=== PATIENT | female | born 1960 | race Caucasian/White ===

== ENCOUNTER 2018-04-17 09:51 | Emergency (ER) | payer OTHER ==
[2018-04-17 10:01] VITALS: BP 148/95
--- NOTE | 2018-04-17 12:03 | ED ---
Psychiatric Complaint - HPI Summary HPI Summary: 57 yo white female with h/o bipolar DO dropped off by her neighbor stating she is psychiatrically "unstable". She is currently not suicidal or homicidal and neighbor voices concerns that her family and her neighbors are concerned about her condition. Her "psychologist" neighbor told the triage nurse that pt has stated some suicidal ideation and that she is unstable, needing to be evaluated. Currently pt is extremely neurotic about her condition, fixated on "loud" clicking of wall clock, certain body piercings (in my ear for example) preseverates on on semantics and is afraid to go to ER for the fear of taking away her autonomy. Pt has not taken her lithium since spring and is on PRN dosing of klonipin 0.5mg and xanax 0.25mg q8hrs PRN. Denies any medical complaints - History Of Current Complaint Chief Complaint: [facility] Time Seen by Provider: 04/17/18 10:13 Hx Obtained From: Patient ?: No Onset/Duration: Sudden Onset Timing: Constant Severity Initially: Severe Severity Currently: Severe Character: Anxious Aggravating Factor(s): Nothing Alleviating Factor(s): Nothing Associated Signs And Symptoms: Positive: Negative - Allergies/Home Medications Allergies/Adverse Reactions: Allergies Allergy/AdvReac Type Severity Reaction Status Date / Time No Known Allergies Allergy Verified 04/17/18 10:02 Home Medications: Home Medications [place] Carbonate [[place] Carbonate 300 mg cap] 300 mg PO DAILY 04/17/18 [ History Confirmed 04/17/18] PMH/Surg Hx/FS Hx/Imm Hx Previously Healthy: Yes - Cancer History Hx Chemotherapy: No Hx Radiation Therapy: No - Surgical History Surgery Procedure, Year, and Place: oral surgery Infectious Disease History: No Infectious Disease History: Denies: Traveled Outside the [place] in Last 30 Days - Social History Alcohol Use: Occasionally Substance Use Type: Reports: None Smoking Status (MU): Former Smoker Review of Systems Constitutional: Negative Eyes: Negative ENT: Negative Cardiovascular: Negative Respiratory: Negative Gastrointestinal: Negative Genitourinary: Negative Skin: Negative Positive: Anxious, Other - SEE HPI All Other Systems Reviewed And Are Negative: Yes Physical Exam - Summary Physical Exam Summary: Vital Signs Reviewed: Yes Skin: Positive: Warm Head/Face: Positive: Normal Head/Face Inspection Eyes: Positive: Normal ENT: Positive: Normal ENT inspection Neck: Positive: Supple Respiratory/Lung Sounds: Positive: Clear to Auscultation Cardiovascular: Positive: Normal, RRR, S1, S2 Abdomen Description: Positive: Nontender Musculoskeletal: Positive: Normal Neurological: Positive: Normal Psychiatric: Positive: LOOSELY COHERENT WITH EXTREME NEUROTIC THOUGHT CONTENT, TANGENTIAL SOMEWHAT GOAL DIRECTED IN SPEECH BY NOISE OF CLOCK TICKING AND BODY PIERCINGS, CURRENTLY NOT SUICIDAL OR HOMICIDAL Triage Information Reviewed: Yes Vital Signs On Initial Exam: Initial Vitals Temp Pulse Resp BP Pulse Ox 36.5 C 82 17 148/95 100 04/17/18 09:57 04/17/18 09:57 04/17/18 09:57 04/17/18 09:57 04/17/18 09:57 Diagnostics - Vital Signs Vital Signs Temp Pulse Resp BP Pulse Ox 04/17/18 09:57 36.5 C 82 17 148/95 100 - Laboratory Lab Statement: Any lab studies that have been ordered have been reviewed, and results considered in the medical decision making process. Course/Dx - Course Course Of Treatment: PT HAS VOICED SUICIAL IDEATION TO THE NEIGHBOR PER THE TRIAGE NOTE AND PER THE "945" PROTOCOL THE HYDROLOGIC MODELER AND AMBULANCE HAD TO BE CALLED TO TAKE PT TO ED FOR FURTHER EVALUATION. PT IS EXTREMELY DISTRAUGHT AND UNTRUSTING OF THE ER ENVIRONMENT AND WE EXPLAINED EXTENSVIELY TO THE PT THAT SHE CAN RELAY HER CONDITION TO THE MENTAL HELATH PROFESSIONAL AND THE PSYCHIATRIST ON STAFF AFTER THE ED EVAL AND THE DECISION FOR DISCHARGE FROM THE ER WOULD COME FROM THE ED STAFF AND THE PSYCHIATRIST. PT STATES SHE HAS BEEN THERE "MANY TIMES"AND CONCERNED ABOUT NOT BEING TREATED HUMANELY AND WITHOUT INTEGRITY SO WE RE-ITERATED THAT SHE NEEDS TO VOICE THAT CONCERN THERE AND THAT SHE MAY BE DISCHARGED FROM THE ER DEPENDING ON THEIR ASSESSMENT. Assessment/Plan: acute ashok in Bipolar 1 DO- Pt off of her meds- 945 protocol activated by the nursing staff- pt transferred by ambulance to [facility] for further acute psychiatric eval - Differential Dx/Clinical Impression Provider Diagnosis: Bipolar I disorder with ashok, Moderate bipolar I disorder with ashok as current episode Discharge - Sign-Out/Discharge Documenting (check all that apply): Patient Departure All imaging exams completed and their final reports reviewed: No Studies - Discharge Plan Condition: Stable Disposition: ADMITTED TO [facility] Referrals: Pedro Garnett DO [Primary Care Provider] - - Billing Disposition and Condition Condition: STABLE Disposition: Admitted to [facility]
== END 2018-04-17 12:00 | disposition short-term general hospital (02) ==
LOC: UCEAST 09:51
DX: F31.12 Bipolar disorder, current episode manic without psychotic features, moderate (principal); Z87.891 Personal history of nicotine dependence
CPT/HCPCS: 99213; G0463

== ENCOUNTER 2018-04-17 12:29 | Inpatient (IN) | payer OTHER ==
--- NOTE | 2018-04-17 12:54 | ED ---
Psychiatric Complaint - HPI Summary HPI Summary: This patient is a 57 year old F brought in by EMS to [facility] for a 945/MHE. The patients neighbor heard the patient state that she wanted to kill herself. She states she is feeling anxious lost her appetite recently causing her to lose 5 pounds in the last couple weeks, she also c/o ABD bloating and foul smelling BM s. When questioned about the mental health issues she states she is not thinking about hurting herself but that she is at a point in her life where she is trying to change her life so that she does not feel so down often. She denies ever mentioning the word suicide. She states that she does not have any one close to her around for the holiday but states that she does not mind this. Her mother that lives in [place] is in pain and she states she is worried she may have to cancel plans with friends to go see her mom. When asked how she feels now she states she feels sick, fatigue, she states she is not eating or sleeping enough. She has been taking lithium for decades per her but she stopped taking her 600mg/day dose over the summer to see if she really needs it. She also has Xanax and klonopin PRN that she has been using for the last 20 years. - History Of Current Complaint Chief Complaint: EDMentalHealth Time Seen by Provider: 04/17/18 12:37 Hx Obtained From: Patient Onset/Duration: Other Timing: Constant Severity Initially: Mild Severity Currently: Mild Aggravating Factor(s): Other Related History: Positive For: Prior Psychiatric Issues Has Suicidal: Denies: Thoughts, With A Plan - Allergies/Home Medications Allergies/Adverse Reactions: Allergies Allergy/AdvReac Type Severity Reaction Status Date / Time No Known Allergies Allergy Verified 04/17/18 10:02 PMH/Surg Hx/FS Hx/Imm Hx Endocrine/Hematology History: Denies: Hx Diabetes, Hx Thyroid Disease Cardiovascular History: Denies: Hx Cardiomegaly, Hx Congenital Heart Disease, Hx Congestive Heart Failure, Hx Coronary Artery Disease, Hx Hypertension Respiratory History: Denies: Hx Asthma, Hx Chronic Obstructive Pulmonary Disease (COPD), Hx Pleural Effusion, Hx Pulmonary Embolism, Hx Sleep Apnea GI History: Denies: Hx Cirrhosis, Hx Crohn's Disease, Hx Diverticulosis, Hx Gall Bladder Disease, Hx Gastrointestinal Bleed, Hx Hiatal Hernia History: Denies: Hx Benign Prostatic Hyperplasia, Hx Chronic Renal Failure, Hx Kidney Infection, Hx Kidney Stones Musculoskeletal History: Denies: Hx Fibromyalgia, Hx Gout, Hx Scoliosis, Hx Tendonitis Sensory History: Reports: Hx Contacts or Glasses Opthamlomology History: Reports: Hx Contacts or Glasses Psychiatric History: Reports: Hx Anxiety, Hx Eating Disorder, Hx Bipolar Disorder Denies: Hx Post Traumatic Stress Disorder, Hx Community Mental Health Tx, Hx Schizophrenia - Cancer History Hx Chemotherapy: No Hx Radiation Therapy: No - Surgical History Surgery Procedure, Year, and Place: oral surgery Infectious Disease History: No Infectious Disease History: Denies: Traveled Outside the in Last 30 Days - Family History Known Family History: Positive: Cardiac Disease Negative: Hypertension, Diabetes - Social History Alcohol Use: Occasionally Substance Use Type: Reports: None Smoking Status (MU): Former Smoker Review of Systems Negative: Fever Negative: Slurred Speech Positive: Other - NEGATIVE SI All Other Systems Reviewed And Are Negative: Yes Physical Exam - Summary Physical Exam Summary: General: well-appearing, no pain distress Skin: warm, color reflects adequate perfusion, dry Head: normal Eyes: EOMI, IVON ENT: normal Neck: supple, nontender Respiratory: CTA, breath sounds present Cardiovascular: RRR Abdomen: soft, nontender Bowel: present Musculoskeletal: normal, strength/ROM intact Neurological: sensory/motor intact, A&O x3 Psychological: pressured speak, seems slightly disjointed Triage Information Reviewed: Yes Vital Signs On Initial Exam: Initial Vitals Temp Pulse Resp BP Pulse Ox 98.0 F 99 18 137/85 99 04/17/18 12:36 04/17/18 12:36 04/17/18 12:36 04/17/18 12:36 04/17/18 12:36 Vital Signs Reviewed: Yes Diagnostics - Vital Signs Vital Signs Temp Pulse Resp BP Pulse Ox 04/17/18 12:36 98.0 F 99 18 137/85 99 - Laboratory Result Diagrams: 04/17/18 14:22 04/17/18 14:22 Lab Statement: Any lab studies that have been ordered have been reviewed, and results considered in the medical decision making process. Course/Dx - Course Course Of Treatment: ADMIT MHU STABLE - Differential Dx/Clinical Impression Provider Diagnosis: Mental health problem Discharge - Sign-Out/Discharge Documenting (check all that apply): Patient Departure - Discharge Plan Condition: Stable Disposition: ADMITTED TO [facility] Referrals: Pedro Garnett DO [Primary Care Provider] - - Billing Disposition and Condition Condition: STABLE Disposition: Admitted to [facility] - Attestation Statements Document Initiated by Layla: Yes Documenting Scribe: Meek Foster Provider For Whom Reginalde is Documenting (Include Credential): Denilson Rodriguez MD Scribe Attestation: IMeek , scribed for Denilson Rodriguez MD on 04/17/18 at 1713. Scribe Documentation Reviewed: Yes Provider Attestation: The documentation as recorded by the Meek stauffer accurately reflects the service I personally performed and the decisions made by me, Denilson Rodriguez MD Status of Scribe Document: Viewed
[2018-04-17 14:30] LABS: ABS Basophils 0 10^3/ul (0-0.2); ABS Eosinophils 0 10^3/ul (0-0.6); ABS Lymphocytes 1.4 10^3/ul (1.0-4.8); ABS Monocytes 0.4 10^3/ul (0-0.8); ABS Neutrophils 3.3 10^3/ul (1.5-7.7); ABS Nucleated RBC 0 10^3/ul; Eosinophil % 0.7 %; Hematocrit 38 % (35-47); Hemoglobin 12.4 g/dl (12.0-16.0); Lymphocyte % 26.6 %; Mean Corpuscular HGB Conc 33 g/dl (31-36); Mean Corpuscular Hemoglobin 30 pg (27-31); Mean Corpuscular Volume 92 fL (80-97); Mean Platelet Volume 7.2 fL (7.4-10.4); Nucleated Red Blood Cells % 0; Platelet Count 295 10^3/ul (150-450); Red Cell Distribution Width 15 % (10.5-15); White Blood Count 5.1 10^3/ul (3.5-10.8)
[2018-04-17 14:47] LABS: ALT 15 U/L (7-52); AST 21 U/L (13-39); Albumin 4.5 g/dL (3.2-5.2); Albumin/Globulin Ratio 1.8 (1-3); Alkaline Phosphatase 54 U/L (34-104); Anion Gap 6 mmol/L (2-11); Blood Urea Nitrogen 15 mg/dL (6-24); CO2 Carbon Dioxide 28 mmol/L (22-32); Calcium 9.6 mg/dL (8.6-10.3); Chloride 106 mmol/L (101-111); EGFR Non-African American 74.5 (>60); Globulin 2.5 g/dL (2-4); Glucose 192 mg/dL (70-100); Potassium 3.8 mmol/L (3.5-5.0); Sodium 140 mmol/L (135-145)
[2018-04-17 14:52] LABS: Urine Appearance Clear; Urine Bilirubin Negative (Negative); Urine Blood Negative (Negative); Urine Color Straw; Urine Glucose 2+(150 mg/dL) (Negative); Urine Ketones Negative (Negative); Urine Nitrite Negative (Negative); Urine Protein Negative (Negative); Urine Specific Gravity 1.005 (1.010-1.030); Urine Urobilinogen Negative (Negative)
[2018-04-17 14:57] LABS: Acetaminophen < 15 mcg/mL; Alcohol < 10 mg/dL (<10); Lithium 0.16 mmol/L (0.6-1.2); Salicylate < 2.50 mg/dL (<30)
[2018-04-17 15:11] LABS: Barbiturates Urine Screen None Detected (None Detect); Benzodiazepine Urine Screen Presumptive Positive (None Detect); Urine Cannabinoids Screen None Detected (None Detect)
[2018-04-17 15:11] LABS: TSH (Thyroid Stimulating Horm) 0.27 mcIU/mL (0.34-5.60)
[2018-04-17] MEDS ORDERED: clonazePAM TAB(*) 0.5 MG PO PRN (17:29)
[2018-04-17] MEDS ORDERED: ALPRAZolam TAB* 0.5 MG PO PRN (17:30)
--- NOTE | 2018-04-18 07:06 | ED ---
Progress - Progress Note Progress Note: Patient is yet to be admitted to MHU. Patient will be signed out to Dr. Rodriguez at end of shift, pending MHU once stable. - Consult/PCP Time Called: 15:06 Course/Dx - Course Course Of Treatment: ADMIT MHU STABLE. Patient was signed out from Dr. Rodriguez at end of shift, pending MHU when stable. Patient is yet to be admitted to MHU. Patient will be signed out to Dr. Rodriguez at end of shift, pending MHU once stable. - Diagnoses Provider Diagnoses: Mental health problem Discharge - Sign-Out/Discharge Documenting (check all that apply): Sign-Out Patient, Receiving Sign-Out Signing out patient TO: Denilson Rodriguez Receiving patient FROM: Denilson Rodriguez All imaging exams completed and their final reports reviewed: No Studies - Discharge Plan Condition: Stable Disposition: [facility]IATRIC FAC[facility] - Billing Disposition and Condition Condition: STABLE Disposition: Psychiatric Facility [facility] - Attestation Statements Document Initiated by Franibe: Yes Documenting Scribe: Vik Wei Provider For Whom Layla is Documenting (Include Credential): Shaan Porter MD Scribe Attestation: Vik King scribed for Shaan Porter MD on 04/22/18 at 0815. Scribe Documentation Reviewed: Yes Provider Attestation: The documentation as recorded by the Vik stauffer accurately reflects the service I personally performed and the decisions made by Luh schmid MD Status of Scribe Document: Viewed
--- NOTE | 2018-04-18 07:16 | ED ---
Progress - Progress Note Progress Note: Patient is yet to be admitted to MHU. Patient was signed out from Dr. Porter to Dr. Rodriguez during a shift change, pending MHU once stable. - Consult/PCP Time Called: 15:06 Course/Dx - Course Course Of Treatment: ADMIT MHU STABLE. Patient was signed out from Dr. Porter at end of shift, pending MHU when stable. Admitted to MHU. - Diagnoses Provider Diagnoses: Mental health problem Discharge - Sign-Out/Discharge Documenting (check all that apply): Patient Departure, Receiving Sign-Out Receiving patient FROM: Shaan Porter - Pending MHU once stable All imaging exams completed and their final reports reviewed: No Studies - Discharge Plan Condition: Stable Disposition: [facility]ATRIC FACILITY[facility] - Billing Disposition and Condition Condition: STABLE Disposition: Psychiatric Facility [facility] - Attestation Statements Document Initiated by Scribe: Yes Documenting Scribe: Ivan Soto Provider For Whom Scribe is Documenting (Include Credential): Denilson Rodriguez MD Scribe Attestation: Ivan King scribed for Denilson Rodriguez MD on 04/18/18 at 1826. Scribe Documentation Reviewed: Yes Provider Attestation: The documentation as recorded by the Ivan stauffer accurately reflects the service I personally performed and the decisions made by me, Denilson Rodriguez MD Status of Scribe Document: Viewed
[2018-04-18 10:40] LABS: Free T4 1.06 ng/dL (0.61-1.12)
[2018-04-18] MEDS: ALPRAZolam TAB* 0.5 MG PO ONE ×3 (11:06→13:06)
--- NOTE | 2018-04-18 11:20 | PN ---
ED Flex Patient Progress Note Subjective: This is a 57 year-old F who is pending re-evaluation by psychiatrist secondary to a neighbor calling reporting she made suicidal comments. Since in ED, has been making paranoid statements, presenting w/ anxiety. Pt offers no complaints at this time. When initially asked direct questions, she does not answer in a steady, timely fashion and her responses are concerning for possible aphasia as she nods her head as though she understands but is not verbalizing a response well - responses are choppy, vague and sometimes she responds with incoherent mumbling. Objective: Vitals: Most recent vital signs documented below. General NAD, Alert and oriented x3. Heart: S1/S2, rrr Lungs: CTA, BREATHING EASILY AB: + BS, soft, NTTP INTEG: clear, warm, well perfused EXTREMITIES: no edema YANIV: moving well w/o restriction, able to sit/stand/transition/ambulate w/o hesitation NEURO: CN II-XII grossly intact - concern for possible aphasia PSYCH: good eye contact, poor communication, calm, cooperative with basic PE Laboratory: Current laboratory results documented below. Assessment: 1) Mental health issue of unidentified origin 2) Anxiety 3) Possible Aphasia Plan: 1) Pending re-evaluation by psychiatrist. Will follow up daily __while in ED___ . 2) Xanax and klonopin as needed - initially held for NIH assessment however pt became non-cooperative and so medication was provided before complete (see below ). 3) Pt's last known normal is presumably at 23:00 when M signed out to Deejay as she relayed pt was hyperverbal, talkative, articulate - there are no notes to indicate when her communication style changed but morning staff also reported to me she was "mute" upon their arrival and evaluation, using gestures to communicate (ie. pointing to mouth - reason unknown). Notes indicate she slept for 4.5 hours. Her breakfast tray appears to have been consumed and when asked if she ate breakfast, pt nodded and pointed to tray. Discussed w/ Dr. Rodriguez who agrees CVA should be ruled out - spoke w/ neurology who recommends CT w/o contrast and ASA pending results. Will also check updated glucose and coags as well as NIH scale. Transitioned pt back from [place] to ED proper and she is not cooperative with NIH testing - was able to score some but not all and no deficits identified based on 1A, 1B, 1C, 2, 4, 5A , 5B, 6A, 6B, Could not evaluate 3, 7, 8, 9, 10, 11 as pt declined to complete testing - when asked to view the pictures, she states I'm not taking a R[place]chach test. Explained I am assessing her for a stroke, not for mental health issues. She diverts w/ tangential and philosophical questions. She states understanding that I'm assessing her for a stroke due to change in her communication but she is communicating much better now - able to find her words, better pace and flow. Mental health brain wave technician reports she did transpose some words earlier today as well. Pt requesting xanax 0.5mg which she reports she takes as needed for anxiety. Explained I would prefer to assess her for stroke prior to medication but after she stopped being cooperative with exam, we agreed to provide her with xanax. She states she will consider the remaining testing after she takes this medication and may want klonopin, her other PRN med, to proceed with tests. No acute neuro deficits at this time however as mentioned above, NIH scale was not able to be completed. Vital Signs Temp Pulse Resp BP Pulse Ox 99.0 F 76 16 128/64 100 04/17/18 23:30 04/17/18 23:30 04/17/18 23:33 04/17/18 23:30 04/17/18 23:30 Lab Results - Entire Visit 04/17/18 04/17/18 04/17/18 14:45 14:45 14:22 WBC RBC Hgb Hct MCV MCH MCHC RDW Plt Count MPV Neut % (Auto) Lymph % (Auto) [place] % (Auto) Eos % (Auto) Baso % (Auto) Absolute Neuts (auto) Absolute Lymphs (auto) Absolute Monos (auto) Absolute Eos (auto) Absolute Basos (auto) Absolute Nucleated RBC Nucleated RBC % Sodium 140 Potassium 3.8 Chloride 106 Carbon Dioxide 28 Anion Gap 6 BUN 15 Creatinine 0.79 Est GFR ( Amer) 90.1 Est GFR (Non-Af Amer) 74.5 BUN/Creatinine Ratio 19.0 Glucose 192 H Calcium 9.6 Total Bilirubin 0.60 AST 21 ALT 15 Alkaline Phosphatase 54 Total Protein 7.0 Albumin 4.5 Globulin 2.5 Albumin/Globulin Ratio 1.8 TSH 0.27 L Free T4 1.06 Urine Color Straw Urine Appearance Clear Urine pH 7.0 Ur Specific [place] 1.005 L Urine Protein Negative Urine Ketones Negative Urine Blood Negative Urine Nitrate Negative Urine Bilirubin Negative Urine Urobilinogen Negative Ur Leukocyte Esterase Negative Urine Glucose 2+(150 mg/dl) A Salicylates < 2.50 Urine Opiates Screen None detected Acetaminophen < 15 Ur Barbiturates Screen None detected Ur Phencyclidine Scrn None detected Ur Amphetamines Screen None detected U Benzodiazepines Scrn Presumptive positive A [place] 0.16 L Urine Cocaine Screen None detected U Cannabinoids Screen None detected Serum Alcohol < 10 04/17/18 14:22 WBC 5.1 RBC 4.10 Hgb 12.4 Hct 38 MCV 92 MCH 30 MCHC 33 RDW 15 Plt Count 295 MPV 7.2 L Neut % (Auto) 64.8 Lymph % (Auto) 26.6 [place] % (Auto) 7.4 Eos % (Auto) 0.7 Baso % (Auto) 0.5 Absolute Neuts (auto) 3.3 Absolute Lymphs (auto) 1.4 Absolute Monos (auto) 0.4 Absolute Eos (auto) 0 Absolute Basos (auto) 0 Absolute Nucleated RBC 0 Nucleated RBC % 0 Sodium Potassium Chloride Carbon Dioxide Anion Gap BUN Creatinine Est GFR ( Amer) Est GFR (Non-Af Amer) BUN/Creatinine Ratio Glucose Calcium Total Bilirubin AST ALT Alkaline Phosphatase Total Protein Albumin Globulin Albumin/Globulin Ratio TSH Free T4 Urine Color Urine Appearance Urine pH Ur Specific [place] Urine Protein Urine Ketones Urine Blood Urine Nitrate Urine Bilirubin Urine Urobilinogen Ur Leukocyte Esterase Urine Glucose Salicylates Urine Opiates Screen Acetaminophen Ur Barbiturates Screen Ur Phencyclidine Scrn Ur Amphetamines Screen U Benzodiazepines Scrn [place] Urine Cocaine Screen U Cannabinoids Screen Serum Alcohol
--- NOTE | 2018-04-18 12:06 | PN ---
ED Flex Patient Progress Note Date of Service: 04/18/18 Subjective: This is a 57 year-old F who is pending admission to [facility] / transfer to another psychiatric facility / discharge to home / or being observed secondary to disorganized thinking and behavior, high level of distress and inability to function safety and independently. Pt c/o that she not not slept in days. Objective: Alert, oriented x 3, psychotically related, grossly delusional, disorganized in her thinking and behavior, questionable impulse control, she appears to respond to internal stimuli. Assessment: Patient with documented history of bipolar Disorder, non-adherence with outpatient psychiatric treatment who presents in an acutely manic state with psychotic features. She needs inpatient treatment for safety, evaluation and treatment. Plan: Admit to our MHU. Vital Signs Temp Pulse Resp BP Pulse Ox 99.0 F 76 16 128/64 100 04/17/18 23:30 04/17/18 23:30 04/17/18 23:33 04/17/18 23:30 04/17/18 23:30 Lab Results - Entire Visit 04/17/18 04/17/18 04/17/18 14:45 14:45 14:22 WBC RBC Hgb Hct MCV MCH MCHC RDW Plt Count MPV Neut % (Auto) Lymph % (Auto) [place] % (Auto) Eos % (Auto) Baso % (Auto) Absolute Neuts (auto) Absolute Lymphs (auto) Absolute Monos (auto) Absolute Eos (auto) Absolute Basos (auto) Absolute Nucleated RBC Nucleated RBC % Sodium 140 Potassium 3.8 Chloride 106 Carbon Dioxide 28 Anion Gap 6 BUN 15 Creatinine 0.79 Est GFR ( Amer) 90.1 Est GFR (Non-Af Amer) 74.5 BUN/Creatinine Ratio 19.0 Glucose 192 H Calcium 9.6 Total Bilirubin 0.60 AST 21 ALT 15 Alkaline Phosphatase 54 Total Protein 7.0 Albumin 4.5 Globulin 2.5 Albumin/Globulin Ratio 1.8 TSH 0.27 L Free T4 1.06 Urine Color Straw Urine Appearance Clear Urine pH 7.0 Ur Specific [place] 1.005 L Urine Protein Negative Urine Ketones Negative Urine Blood Negative Urine Nitrate Negative Urine Bilirubin Negative Urine Urobilinogen Negative Ur Leukocyte Esterase Negative Urine Glucose 2+(150 mg/dl) A Salicylates < 2.50 Urine Opiates Screen None detected Acetaminophen < 15 Ur Barbiturates Screen None detected Ur Phencyclidine Scrn None detected Ur Amphetamines Screen None detected U Benzodiazepines Scrn Presumptive positive A [place] 0.16 L Urine Cocaine Screen None detected U Cannabinoids Screen None detected Serum Alcohol < 10 04/17/18 14:22 WBC 5.1 RBC 4.10 Hgb 12.4 Hct 38 MCV 92 MCH 30 MCHC 33 RDW 15 Plt Count 295 MPV 7.2 L Neut % (Auto) 64.8 Lymph % (Auto) 26.6 [place] % (Auto) 7.4 Eos % (Auto) 0.7 Baso % (Auto) 0.5 Absolute Neuts (auto) 3.3 Absolute Lymphs (auto) 1.4 Absolute Monos (auto) 0.4 Absolute Eos (auto) 0 Absolute Basos (auto) 0 Absolute Nucleated RBC 0 Nucleated RBC % 0 Sodium Potassium Chloride Carbon Dioxide Anion Gap BUN Creatinine Est GFR ( Amer) Est GFR (Non-Af Amer) BUN/Creatinine Ratio Glucose Calcium Total Bilirubin AST ALT Alkaline Phosphatase Total Protein Albumin Globulin Albumin/Globulin Ratio TSH Free T4 Urine Color Urine Appearance Urine pH Ur Specific [place] Urine Protein Urine Ketones Urine Blood Urine Nitrate Urine Bilirubin Urine Urobilinogen Ur Leukocyte Esterase Urine Glucose Salicylates Urine Opiates Screen Acetaminophen Ur Barbiturates Screen Ur Phencyclidine Scrn Ur Amphetamines Screen U Benzodiazepines Scrn [place] Urine Cocaine Screen U Cannabinoids Screen Serum Alcohol
[2018-04-18] MEDS ORDERED: Al Hydrox/Mg Hydrox/Simet LIQ* 30 ML UDC PO PRN (18:39)
[2018-04-18] MEDS: Acetaminophen TAB* 325 MG PO PRN (21:57)
[2018-04-19] MEDS ORDERED: LORazepam TAB(*) 1 MG PO ONE (00:05)
[2018-04-19] MEDS ORDERED: LORazepam TAB(*) 1 MG ONE (00:17)
[2018-04-19] MEDS: Vitamin THERAPEUTIC TAB PO SCH (11:04)
[2018-04-19] MEDS: Lithium Carbonate TAB* 300 MG PO SCH ×2 (13:05→20:49)
[2018-04-19] MEDS: clonazePAM TAB(*) 0.5 MG PO PRN (13:27)
[2018-04-19] MEDS ORDERED: OLANzapine TAB*ODT* 5 MG PO ONE (14:27)
--- NOTE | 2018-04-19 15:08 | HP ---
HISTORY AND PHYSICAL: DATE OF ADMISSION: 04/18/18 SUPERVISING PSYCHIATRIST: Dr. Sebastian Briggs* (dictated by JUANITO Gagnon) . JUSTIFICATION FOR ADMISSION: The patient presented to the emergency department with a friend who reported concerns of suicidal ideation. The patient presents as disorganized with paranoid ideation and was unable to care for herself. She merits hospitalization for immediate safety and stabilization. CHIEF COMPLAINT: "This is the fourth or fifth time trying not to use lithium." HISTORY OF PRESENT ILLNESS: Felipa is a 57-year-old white female, domiciled, single, with previous employment at [employer]. She has a known history of bipolar disorder and has been working with [facility] for 2 or 3 decades. She presented to the emergency department on the afternoon of 04/17/18. She was referred to ED after presenting to [facility] with her neighbor due to concerns of suicidal ideation. While in the emergency department, the patient was evaluated and was refusing labs or x-rays to rule out medical complications. Also while in the emergency department, the patient presented as disorganized and paranoid and was admitted on the evening of 04/18/18 to the [facility]. The patient presents as highly distractible, irritable, with pressured speech. She initially met with a provider with whom she had a good rapport in the outpatient setting; however, today she refused to work with her and was alarmingly irritable and paranoid. During conversation with this medical technical writer, the patient presented with loose associations and was circumstantial in regards to an organization she was involved with in the past, called [employer]. She goes on to describe interpersonal conflict with members of the organization. She states that she had an affair with a switchboard operator receptionist during this time. She goes on to discuss work that she had done at [employer] until 2007. 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 It is my presumption that she was likely unable to work due to disabilities surrounding bipolar disorder. As stated above, she presents as hyper-talkative with pressured speech. She has delusions about the current presidential administration. While we were discussing, she hears a peer coughing and asks if that is directly related to her or giving her some messages. She reports a history of bipolar disorder and being prescribed lithium intermittently for the past 30 years. She states that she has not been using it consistently for the last 3 to 4 years. As stated above, she stopped taking lithium and recalls this was probably last spring or summer. In the ER notes, it was referenced that she utilizes alprazolam and clonazepam. I checked the I-STOP and she has 1 prescription in April of this year and 1 in June of this year. Otherwise, there are no other controlled prescriptions. BANQUET HOUSEPERSON reference number [id number]. The patient goes on to say that she has been trying to use sleep restriction, yoga, and meditation to quell bipolar lability. She reports a poor history of sleep. She states that quetiapine has caused dissociative episodes in the past. 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 The patient denies suicidal ideation. She denies urges for self-harm. She denies a history of suicidality. As far as we know, the patient has not made an attempt to harm herself. She does not have a known history of aggression or violence. PAST PSYCHIATRIC HISTORY: As stated above, the patient has been a client of [facility] for many years. She currently sees Dr. Jerald Angela. The patient was hospitalized at this facility likely 18 or 20 years ago, but we are not really sure as it is not in the EMR. TRAUMA/ABUSE HISTORY: To be determined. PRIOR PSYCHIATRIC MEDICATIONS: Include: 1. Freedom. 2. Clonazepam. 3. Alprazolam. 4. Quetiapine. 5. Prazosin, ineffective. PAST MEDICAL HISTORY: Nontoxic multinodular goiter, anemia. PRIMARY CARE PROVIDER: Dr. Pedro Garnett. CURRENT MEDICATIONS: Other than the above benzodiazepines, the patient denies current medications. FAMILY PSYCHIATRIC HISTORY: The patient states that she and her family do not talk about emotions or such things. SOCIAL HISTORY: The patient is single, never , with no children. She has worked at [employer] and believe has a master's degree. She identifies as homosexual and is not currently dating. She lives alone. There is no known history of legal history or history. REVIEW OF SYSTEMS: Constitutional: Negative. No fever, chills, or fatigue. ENT: Negative. Cardiovascular: Negative. Denies chest pain or palpitations. Respiratory: Negative. Denies shortness of breath or cough. Genitourinary: Negative. Musculoskeletal: Negative. Neurological: Negative. PHYSICAL EXAMINATION The patient declines offer of physical exam. She was examined in the emergency department. For further exam data, please see ED provider report. LABORATORY DATA: In the emergency department, CBC was grossly unremarkable including H and H, which was within normal limits. Chemistry within normal limits with the exception of a TSH of 0.27, but the free T4 was 1.06. Urinalysis: 2+ glucose, otherwise negative. Toxicology negative for salicylates, acetaminophen, or alcohol. Urine drug screen positive for benzodiazepines, which is consistent with the patient's report. Freedom level 0.16. MENTAL STATUS EXAM: Felipa is a 57-year-old white female, thin-framed and well groomed with short dark curly hair and red-rimmed glasses. She is wearing combination of her own clothing and donated clothing. She is pleasant on approach and participates fully in conversation. The patient is alert and oriented x3. Eye contact is good. Speech is pressured with normal volume. Mood is anxious, irritable, with congruent affect. Affect: No abnormal psychomotor activity noted. Thought process is circumstantial, disorganized with loose associations. Thought content is negative for SI, HI, or passive wish. She denies AH or VH. The patient has exhibited paranoid delusions. Insight and judgment are impaired. Fund of knowledge is excellent. Intelligence appeared to be average as evidenced through vocabulary and educational attainment. DIAGNOSIS: Bipolar disorder; current episode, manic with psychotic features. ASSESSMENT: Felipa is a 57-year-old female who presented to the emergency department on the afternoon of 04/17/18. She had presented from [facility] after presenting to [facility] with her neighbor due to concerns of suicidal ideation. While in the emergency department, the patient was evaluated and was refusing labs or x-rays to rule out medical complications. While in the emergency department, the patient presented as disorganized and paranoid and was admitted on the evening of 04/18/18 to the [facility]. She continues to present as manic with paranoid delusions. She is agreeable to reinstate lithium. PLAN: The patient is admitted to adult behavioral services unit on involuntary status. Code status is full. She is placed on a 15-minute checks for her safety. She is encouraged to participate in supportive milieu, individual sessions with staff and psychoeducational groups when able to do so. We will reinstate lithium and titrate to efficacy and monitor for mood and thought content. Estimated length of stay is 5 to 7 days. Discharge planning will include outpatient providers. JUANITO GAGNON [id number]/CPS #: [id number] EVELIN
[2018-04-19] MEDS: clonazePAM TAB(*) 1 MG PO SCH (20:50)
[2018-04-19] MEDS ORDERED: OLANzapine TAB*ODT* 5 MG PO SCH (21:00)
[2018-04-20 06:38] LABS: HDL Cholesterol 70.4 mg/dL
[2018-04-20] MEDS: Lithium Carbonate TAB* 300 MG PO SCH (08:16)
[2018-04-20] MEDS: Vitamin THERAPEUTIC TAB PO SCH (08:19)
--- NOTE | 2018-04-20 11:50 | PN ---
Subjective - Subjective Date of Service: 04/20/18 Service Type: 30289 Hosp care 15 min low complexity Subjective: Patient did not sleep last night despite medication adherence. Today, she has paranoid delusions and is guarded. She exhibits hypergraphia and racing thoughts. Her speech is terse with loose associations. While meeting in comfort room with providers, patient ends meeting abruptly citing she is not comfortable and wants to be somewhere more quiet. Objective - Appearance Appearance: Thin Framed Dysmorphic Features: No Hygiene: Normal Grooming: Disheveled - Behavior Psychomotor Activities: Normal Exhibits Abnormal Movement: No - Attitude and Relatedness Attitude and Relatedness: Psychotically Related Eye Contact: Poor - Speech Quality: Pressured Latencies: Short Quantity: Terse - Mood Patient's Decription of Mood: "Fine" - Affect Observed Affect: Expansive Affect Consistent with: Euphoria - Thought Process Patient's Thought Process: Loose Associations, Tangential, Over Inclusive Thought Content: Yes Paranoid Ideation, No Passive Wish, No Suicidal Planning, No Homicidal Ideation - Sensorium Experiencing Hallucinations: No, Sensorium is Clear Type of Hallucinations: Visual: No, Auditory: No, Command: No - Level of Consciousness Level of Consciousness: Alert Orientation: Yes Intact, Yes Orientated to Time, Yes Orientated to Place, Yes Orientated to Person - Impulse Control Impulse Control: Poor - Insight and Judgement Insight and Judgement: Impaired - Group Participation Particating in Group Activities: Yes - Medication Management Medication Management Adherence: Yes Assessment - Assessment Merits Inpatient Hospitalization: For Immediate Safety, For Stabilization Inpatient DSM-V Dx: F31.2 Clinical Impression: 57yo wf with known history of bipolar I d/o who presented to ED with friend due to suicidal statements. Patient presents as grossly disorganized with psychotic features. She merits hospitalization for immediate safety and stabilization. MHU: Problem List - Patient Problems (1) Bipolar disorder Current Visit: No Status: Active Priority: Low Code(s): F31.9 - BIPOLAR DISORDER, UNSPECIFIED SNOMED Code(s): 13063303 Comment: continue to titrate lithium and olanzapine Plan - Plan Treatment Plan: Name: CODIE OTERO Birthdate: 1960 [id number] continue acute intensive psychiatric treatment. increase lithium and olanzapine. utilize prn clonazepam for agitation. Continued Medication Management: Start Medication Medications: Current Medications Acetaminophen (Tylenol Tab*) 650 mg PO Q4H PRN PRN Reason: PAIN or TEMP > 101 F Last Admin: 04/18/18 21:57 Dose: 650 mg Al Hydrox/Mg Hydrox/Simethicone (Maalox Plus*) 30 ml PO Q4H PRN PRN Reason: INDIGESTION Clonazepam (Klonopin Tab(*)) 1 mg PO BEDTIME FRENCH Last Admin: 04/19/18 20:50 Dose: 1 mg Clonazepam (Klonopin Tab(*)) 0.5 mg PO BID PRN PRN Reason: anxiety/agitation Last Admin: 04/19/18 13:27 Dose: 0.5 mg [place] Carbonate ([place] Carbonate Tab*) 600 mg PO BEDTIME FRENCH [place] Carbonate ([place] Carbonate Tab*) 300 mg PO DAILY [facility] Multivitamins (Theragran Tab*) 1 tab PO DAILY [facility] Last Admin: 04/20/18 08:19 Dose: Not Given Olanzapine (Zyprexa * Tab Odt) 10 mg PO BEDTIME FRENCH - Discharge Plan Discharge Plan: Outpatient Follow Up Outpatient Program: [facility]
[2018-04-20] MEDS: clonazePAM TAB(*) 0.5 MG PO PRN (18:42)
[2018-04-20] MEDS: OLANzapine TAB*ODT* 5 MG PO SCH (20:01)
[2018-04-20] MEDS: clonazePAM TAB(*) 1 MG PO SCH (20:01)
[2018-04-20] MEDS ORDERED: Lithium Carbonate TAB* 300 MG PO SCH (21:00)
[2018-04-21] MEDS: clonazePAM TAB(*) 0.5 MG PO PRN (01:55)
[2018-04-21] MEDS: Acetaminophen TAB* 325 MG PO PRN ×2 (04:05→08:15)
[2018-04-21] MEDS: Vitamin THERAPEUTIC TAB PO SCH (08:20)
[2018-04-21] MEDS ORDERED: Lithium Carbonate TAB* 300 MG PO SCH (09:00)
[2018-04-21] MEDS ORDERED: OLANzapine TAB* 5 MG PO ONE (10:49)
[2018-04-21] MEDS ORDERED: OLANzapine TAB*ODT* 5 MG ONE (10:52)
--- NOTE | 2018-04-21 11:00 | PN ---
Subjective - Subjective Date of Service: 04/21/18 Service Type: [id number] Hosp care 35 min high complexity Subjective: Patient slept briefly last night. She attempted to leave unit due to confused state. She expresses desire to be assessed in the ED and reports concern about "life threatening illness." Preventative Maintenance Technician reminded patient she was seen in ED prior to [facility] and she seemed to be relieved by this information. She agrees to an EKG today. She goes on in great detail about her wood burning stove and tangential topics from there. She presents with mood lability, paranoid ideation about [employer] and the fire department, rapid and pressured speech. Objective - Appearance Appearance: Thin Framed Dysmorphic Features: No Hygiene: Dirty Grooming: Disheveled - Behavior Psychomotor Activities: Normal Exhibits Abnormal Movement: No - Attitude and Relatedness Attitude and Relatedness: Psychotically Related Eye Contact: Good - Speech Quality: Pressured Latencies: Normal Quantity: Copious - Mood Patient's Decription of Mood: "Anxious" - Affect Observed Affect: Labile Affect Consistent with: Euphoria - Thought Process Patient's Thought Process: Tangential, Filght of Ideas, Over Inclusive Thought Content: Yes Paranoid Ideation, No Passive Wish, No Suicidal Planning, No Homicidal Ideation - Sensorium Experiencing Hallucinations: No, Sensorium is Clear Type of Hallucinations: Visual: No, Auditory: No, Command: No - Level of Consciousness Level of Consciousness: Alert Orientation: Yes Intact, Yes Orientated to Time, Yes Orientated to Place, Yes Orientated to Person - Impulse Control Impulse Control: Impaired - Insight and Judgement Insight and Judgement: Impaired - Group Participation Particating in Group Activities: No - Medication Management Medication Management Adherence: Yes Assessment - Assessment Merits Inpatient Hospitalization: For Immediate Safety, For Stabilization Inpatient DSM-V Dx: F31.2 Clinical Impression: 57yo wf with known history of bipolar I d/o who presented to ED with friend due to suicidal statements. Patient presents as grossly disorganized with psychotic features. She merits hospitalization for immediate safety and stabilization. MHU: Problem List - Patient Problems (1) Bipolar disorder Current Visit: No Status: Active Priority: Low Code(s): F31.9 - BIPOLAR DISORDER, UNSPECIFIED SNOMED Code(s): 30193348 Comment: continue to titrate lithium and olanzapine Plan - Plan Treatment Plan: Name: CODIE OTERO Birthdate: 1960 [id number] continue acute intensive psychiatric treatment. continue titration of olanzapine and lithium. increase prn dose of clonazepam. obtain lithium level on morning on 04/24/18. Continued Medication Management: Start Medication Medications: Current Medications Acetaminophen (Tylenol Tab*) 650 mg PO Q4H PRN PRN Reason: PAIN or TEMP > 101 F Last Admin: 04/21/18 08:15 Dose: 650 mg Al Hydrox/Mg Hydrox/Simethicone (Maalox Plus*) 30 ml PO Q4H PRN PRN Reason: INDIGESTION Clonazepam (Klonopin Tab(*)) 1 mg PO BEDTIME FRENCH Last Admin: 04/20/18 20:01 Dose: 1 mg Clonazepam (Klonopin Tab(*)) 1 mg PO TID PRN PRN Reason: anxiety/agitation [place] Carbonate ([place] Carbonate Tab*) 600 mg PO BID [facility] Multivitamins (Theragran Tab*) 1 tab PO DAILY [facility]CH Last Admin: 04/21/18 08:20 Dose: Not Given Olanzapine (Zyprexa * Tab Odt) 10 mg PO BEDTIME FRENCH Last Admin: 04/20/18 20:01 Dose: 10 mg - Discharge Plan Discharge Plan: Inpatient Hospitalization
[2018-04-21] MEDS: clonazePAM TAB(*) 1 MG PO PRN (11:14)
[2018-04-21] MEDS ORDERED: clonazePAM TAB(*) 1 MG PO SCH (14:00)
[2018-04-21] MEDS: clonazePAM TAB(*) 1 MG PO SCH (22:08)
[2018-04-21] MEDS: Lithium Carbonate TAB* 300 MG PO SCH (22:09)
[2018-04-21] MEDS: OLANzapine TAB*ODT* 5 MG PO SCH (22:10)
[2018-04-22] MEDS: Lithium Carbonate TAB* 300 MG PO SCH ×2 (08:47→20:04)
[2018-04-22] MEDS: Vitamin THERAPEUTIC TAB PO SCH (08:47)
[2018-04-22] MEDS: clonazePAM TAB(*) 1 MG PO PRN ×2 (08:53→12:43)
[2018-04-22] MEDS: OLANzapine TAB*ODT* 5 MG PO SCH ×2 (13:38→21:30)
[2018-04-22] MEDS ORDERED: OLANzapine TAB*ODT* 10 MG TAB PO ONE (15:00)
--- NOTE | 2018-04-22 17:43 | PN ---
Subjective - Subjective Date of Service: 04/22/18 Service Type: [id number] Hosp care 15 min low complexity Subjective: Codie continues to be pressured, talkative, intrussive and argumentative. Constantly standing by the Nurse's station talking nonstop. Additional dose of zyprexa offered and she agreed to take. Still out by the NS talking, but easily re-directable. Objective - Appearance Appearance: Healthy Appearing, Thin Framed Dysmorphic Features: No Hygiene: Normal Grooming: Fairly Well Kept - Behavior Psychomotor Activities: Abnormal-Increased Exhibits Abnormal Movement: No - Attitude and Relatedness Attitude and Relatedness: Dismissive Eye Contact: Fair - Speech Quality: Pressured Latencies: Short Quantity: Copious - Mood Patient's Decription of Mood: "Upset" - Affect Observed Affect: Expansive Affect Consistent with: Dysphoria - Thought Process Patient's Thought Process: Coherent, Filght of Ideas, Over Inclusive Thought Content: No Passive Wish, No Suicidal Planning, No Homicidal Ideation, No Paranoid Ideation - Sensorium Experiencing Hallucinations: No, Sensorium is Clear Type of Hallucinations: Visual: No, Auditory: No, Command: No - Level of Consciousness Level of Consciousness: Alert Orientation: Yes Intact, Yes Orientated to Time, Yes Orientated to Place, Yes Orientated to Person - Impulse Control Impulse Control: Tenuous - Insight and Judgement Insight and Judgement: Poor - Medication Management Medication Management Adherence: Yes Assessment - Assessment Merits Inpatient Hospitalization: For Immediate Safety, For Stabilization, For Discharge Planning Inpatient DSM-V Dx: F31.2 Clinical Impression: 57yo wf with known history of bipolar I d/o who presented to ED with friend due to suicidal statements. Patient presents as grossly disorganized with psychotic features. She merits hospitalization for immediate safety and stabilization. Plan - Plan Treatment Plan: Name: CODIE OTERO Birthdate: 1960 [id number] continue acute intensive psychiatric treatment. continue titration of olanzapine and lithium. increase prn dose of clonazepam. obtain lithium level on morning on 04/24/18. Continued Medication Management: Continue Outpt Medication Medications: Current Medications Acetaminophen (Tylenol Tab*) 650 mg PO Q4H PRN PRN Reason: PAIN or TEMP > 101 F Last Admin: 04/21/18 08:15 Dose: 650 mg Al Hydrox/Mg Hydrox/Simethicone (Maalox Plus*) 30 ml PO Q4H PRN PRN Reason: INDIGESTION Clonazepam (Klonopin Tab(*)) 1 mg PO BEDTIME FRENCH Last Admin: 04/21/18 22:08 Dose: 1 mg Clonazepam (Klonopin Tab(*)) 1 mg PO TID PRN PRN Reason: anxiety/agitation Last Admin: 04/22/18 08:53 Dose: 1 mg [place] Carbonate ([place] Carbonate Tab*) 600 mg PO BID [facility] Last Admin: 04/22/18 08:47 Dose: 600 mg Multivitamins (Theragran Tab*) 1 tab PO DAILY [facility]ENCH Last Admin: 04/22/18 08:47 Dose: 1 tab Olanzapine (Zyprexa * Tab Odt) 10 mg PO BEDTIME FRENCH Last Admin: 04/22/18 13:38 Dose: 10 mg - Discharge Plan Discharge Plan: Outpatient Follow Up Outpatient Program: [facility]
[2018-04-22] MEDS: clonazePAM TAB(*) 1 MG PO SCH (21:30)
[2018-04-23] MEDS: Lithium Carbonate TAB* 300 MG PO SCH ×2 (08:56→20:16)
[2018-04-23] MEDS: Vitamin THERAPEUTIC TAB PO SCH (08:56)
[2018-04-23] MEDS: OLANzapine TAB*ODT* 10 MG TAB PO SCH (08:56)
[2018-04-23] MEDS: clonazePAM TAB(*) 1 MG PO PRN (14:56)
[2018-04-23] MEDS: clonazePAM TAB(*) 1 MG PO SCH (21:32)
[2018-04-24] MEDS: Vitamin THERAPEUTIC TAB PO SCH (08:46)
[2018-04-24] MEDS: OLANzapine TAB*ODT* 10 MG TAB PO SCH (08:46)
[2018-04-24] MEDS: Lithium Carbonate TAB* 300 MG PO SCH ×2 (08:46→21:23)
--- NOTE | 2018-04-24 12:32 | PN ---
Subjective - Subjective Date of Service: 04/24/18 Service Type: 70987 Hosp care 15 min low complexity Subjective: The patient is seen in Holiday coverage for JUANITO, Li Mccormick. Felipa appears quite manic. I overhear her in her room talking loudly to herself and she comes out in an anxious state to greet me, inquiring whether she's having a stroke or a seizure. Staff reports indicate that she has been irritating peers , crawling on the floor and displaying other bizarre behaviors. She is taking lithium and olanzapine as directed. She denies SI. Objective - Appearance Appearance: Well Developed/Nourished Dysmorphic Features: No Hygiene: Normal Grooming: Fairly Well Kept - Behavior Psychomotor Activities: Abnormal-Increased Exhibits Abnormal Movement: No - Attitude and Relatedness Attitude and Relatedness: Psychotically Related Eye Contact: Poor - Speech Quality: Pressured Latencies: Short Quantity: Copious - Mood Patient's Decription of Mood: "Terrible" - Affect Observed Affect: Labile Affect Consistent with: Dysphoria - Thought Process Patient's Thought Process: Disorganized Thought Content: Yes Paranoid Ideation, No Passive Wish, No Suicidal Planning, No Homicidal Ideation - Sensorium Experiencing Hallucinations: No, Sensorium is Clear Type of Hallucinations: Visual: No, Auditory: No, Command: No - Level of Consciousness Level of Consciousness: Agitated Orientation: Yes Intact, Yes Orientated to Time, Yes Orientated to Place, Yes Orientated to Person - Impulse Control Impulse Control: Poor - Insight and Judgement Insight and Judgement: Impaired - Group Participation Particating in Group Activities: No - Medication Management Medication Management Adherence: Yes Assessment - Assessment Merits Inpatient Hospitalization: For Immediate Safety, For Stabilization Inpatient DSM-V Dx: F31.2 Clinical Impression: 57yo wf with known history of bipolar I d/o who presented to ED with friend due to suicidal statements. Patient presents as grossly disorganized with psychotic features. She merits hospitalization for immediate safety and stabilization. Plan - Plan Treatment Plan: Name: FELIPA OTERO Birthdate: 1960 [id number] continue acute intensive psychiatric treatment. continue titration of olanzapine and lithium. increase prn dose of clonazepam. obtain lithium level on morning on 04/24/18. Continued Medication Management: Continue Outpt Medication Medications: Current Medications Acetaminophen (Tylenol Tab*) 650 mg PO Q4H PRN PRN Reason: PAIN or TEMP > 101 F Last Admin: 04/21/18 08:15 Dose: 650 mg Al Hydrox/Mg Hydrox/Simethicone (Maalox Plus*) 30 ml PO Q4H PRN PRN Reason: INDIGESTION Clonazepam (Klonopin Tab(*)) 1 mg PO BEDTIME FRENCH Last Admin: 04/23/18 21:32 Dose: 1 mg Clonazepam (Klonopin Tab(*)) 1 mg PO TID PRN PRN Reason: anxiety/agitation Last Admin: 04/23/18 14:56 Dose: 1 mg [place] Carbonate ([place] Carbonate Tab*) 600 mg PO BID [facility] Last Admin: 04/24/18 08:46 Dose: 600 mg Multivitamins (Theragran Tab*) 1 tab PO DAILY [facility]ENCH Last Admin: 04/24/18 08:46 Dose: 1 tab Olanzapine (Zyprexa *Odt*) 20 mg PO DAILY [facility] Last Admin: 04/24/18 08:46 Dose: 20 mg - Discharge Plan Discharge Plan: Inpatient Hospitalization
[2018-04-24] MEDS: clonazePAM TAB(*) 1 MG PO SCH (21:22)
[2018-04-25] MEDS: clonazePAM TAB(*) 1 MG PO PRN (01:37)
[2018-04-25] MEDS: OLANzapine TAB*ODT* 10 MG TAB PO SCH (11:08)
[2018-04-25] MEDS: Vitamin THERAPEUTIC TAB PO SCH (11:08)
[2018-04-25] MEDS: Lithium Carbonate TAB* 300 MG PO SCH ×2 (11:08→20:36)
--- NOTE | 2018-04-25 15:40 | PN ---
Subjective - Subjective Date of Service: 04/25/18 Service Type: [id number] Hosp care 15 min low complexity Subjective: Patient declined medications despite being offered multiple times. She continues to remain awake most nights, is intrusive and disorganized. During conversation, she inquires about criteria for being discharged. She denies having a manic episode and blames presentation on being hospitalized. Objective - Appearance Appearance: Thin Framed Dysmorphic Features: No Hygiene: Normal Grooming: Disheveled - Behavior Psychomotor Activities: Normal Exhibits Abnormal Movement: No - Attitude and Relatedness Attitude and Relatedness: Psychotically Related Eye Contact: Good - Speech Quality: Pressured Latencies: Normal Quantity: Copious - Mood Patient's Decription of Mood: "Fine" - Affect Observed Affect: Tense Affect Consistent with: Euphoria - Thought Process Patient's Thought Process: Disorganized, Tangential Thought Content: Yes Paranoid Ideation, No Passive Wish, No Suicidal Planning, No Homicidal Ideation - Sensorium Experiencing Hallucinations: No, Sensorium is Clear Type of Hallucinations: Visual: No, Auditory: No, Command: No - Level of Consciousness Level of Consciousness: Alert Orientation: Yes Intact, Yes Orientated to Time, Yes Orientated to Place, Yes Orientated to Person - Impulse Control Impulse Control: Impaired - Insight and Judgement Insight and Judgement: Impaired - Group Participation Particating in Group Activities: No - Medication Management Medication Management Adherence: No Assessment - Assessment Merits Inpatient Hospitalization: For Immediate Safety, For Stabilization Inpatient DSM-V Dx: F31.2 Clinical Impression: 57yo wf with known history of bipolar I d/o who presented to ED with friend due to suicidal statements. Patient presents as grossly disorganized with psychotic features. She merits hospitalization for immediate safety and stabilization. MHU: Problem List - Patient Problems (1) Bipolar disorder Current Visit: No Status: Active Priority: Low Code(s): F31.9 - BIPOLAR DISORDER, UNSPECIFIED SNOMED Code(s): 56304505 Comment: continue to titrate lithium and olanzapine Plan - Plan Treatment Plan: Name: CODIE OTERO Birthdate: 1960 [id number] continue acute intensive psychiatric treatment. continue current medications. Continued Medication Management: Start Medication Medications: Current Medications Acetaminophen (Tylenol Tab*) 650 mg PO Q4H PRN PRN Reason: PAIN or TEMP > 101 F Last Admin: 12/28/18 08:15 Dose: 650 mg Al Hydrox/Mg Hydrox/Simethicone (Maalox Plus*) 30 ml PO Q4H PRN PRN Reason: INDIGESTION Clonazepam (Klonopin Tab(*)) 1 mg PO BEDTIME [facility] Last Admin: 04/24/18 21:22 Dose: 1 mg Clonazepam (Klonopin Tab(*)) 1 mg PO TID PRN PRN Reason: anxiety/agitation Last Admin: 04/25/18 01:37 Dose: 1 mg [place] Carbonate ([place] Carbonate Tab*) 600 mg PO BID [facility] Last Admin: 04/25/18 11:08 Dose: Not Given Multivitamins (Theragran Tab*) 1 tab PO DAILY [facility] Last Admin: 04/25/18 11:08 Dose: Not Given Olanzapine (Zyprexa *Odt*) 20 mg PO DAILY [facility] Last Admin: 04/25/18 11:08 Dose: Not Given - Discharge Plan Discharge Plan: Inpatient Hospitalization
[2018-04-25] MEDS: clonazePAM TAB(*) 1 MG PO SCH (20:36)
[2018-04-26] MEDS: Lithium Carbonate TAB* 300 MG PO SCH ×2 (08:08→20:21)
[2018-04-26] MEDS: OLANzapine TAB*ODT* 10 MG TAB PO SCH (08:08)
[2018-04-26] MEDS: Vitamin THERAPEUTIC TAB PO SCH (08:08)
--- NOTE | 2018-04-26 15:43 | PN ---
Subjective - Subjective Date of Service: 04/26/18 Service Type: [id number] Hosp care 15 min low complexity Subjective: Patient is noted by staff to attempt to open doors about the unit, seemingly in an effort to elope. Patient slept approx 2 hours last night, naps intermittently during the day. Patient expresses desire to be discharged in order to attend a conference. She goes on to describe the anthropomorphization of birds and animals and relates that she is "caged" by being hospitalized. Patient endorses paranoid ideation in that she believes there is a tunnel from the wellness room to another area of the hospital and that reading materials in the milieu are "fake books." Objective - Appearance Appearance: Thin Framed Dysmorphic Features: No Hygiene: Normal Grooming: Disheveled - Behavior Psychomotor Activities: Normal Exhibits Abnormal Movement: No - Attitude and Relatedness Attitude and Relatedness: Psychotically Related Eye Contact: Good - Speech Quality: Unpressured Latencies: Normal Quantity: Copious - Mood Patient's Decription of Mood: "Fine" - Affect Observed Affect: Tense Affect Consistent with: Euphoria - Thought Process Patient's Thought Process: Disorganized, Loose Associations, Over Inclusive Thought Content: Yes Paranoid Ideation, No Passive Wish, No Suicidal Planning, No Homicidal Ideation - Sensorium Experiencing Hallucinations: No, Sensorium is Clear Type of Hallucinations: Visual: No, Auditory: No, Command: No - Level of Consciousness Level of Consciousness: Alert Orientation: Yes Intact, Yes Orientated to Time, Yes Orientated to Place, Yes Orientated to Person - Impulse Control Impulse Control: Impaired - Insight and Judgement Insight and Judgement: Impaired - Group Participation Particating in Group Activities: No - Medication Management Medication Management Adherence: Partial Assessment - Assessment Merits Inpatient Hospitalization: For Immediate Safety, For Stabilization Inpatient DSM-V Dx: F31.2 Clinical Impression: 57yo wf with known history of bipolar I d/o who presented to ED with friend due to suicidal statements. Patient presents as grossly disorganized with psychotic features. She merits hospitalization for immediate safety and stabilization. MHU: Problem List - Patient Problems (1) Bipolar disorder Current Visit: No Status: Active Priority: Low Code(s): F31.9 - BIPOLAR DISORDER, UNSPECIFIED SNOMED Code(s): 16259195 Comment: continue to titrate lithium and olanzapine Plan - Plan Treatment Plan: Name: CODIE OTERO Birthdate: 1960 [id number] continue acute intensive psychiatric treatment. increase olanzapine, continue other medications. utilize prn clonazepam for agitation/anxiety. Continued Medication Management: Different Medication Medications: Current Medications Acetaminophen (Tylenol Tab*) 650 mg PO Q4H PRN PRN Reason: PAIN or TEMP > 101 F Last Admin: 04/21/18 08:15 Dose: 650 mg Al Hydrox/Mg Hydrox/Simethicone (Maalox Plus*) 30 ml PO Q4H PRN PRN Reason: INDIGESTION Clonazepam (Klonopin Tab(*)) 1 mg PO BEDTIME [facility] Last Admin: 04/25/18 20:36 Dose: 1 mg Clonazepam (Klonopin Tab(*)) 1 mg PO TID PRN PRN Reason: anxiety/agitation Last Admin: 04/25/18 01:37 Dose: 1 mg [place] Carbonate ([place] Carbonate Tab*) 600 mg PO BID [facility] Last Admin: 04/26/18 08:08 Dose: 600 mg Multivitamins (Theragran Tab*) 1 tab PO DAILY [facility] Last Admin: 04/26/18 08:08 Dose: 1 tab Olanzapine (Zyprexa *Odt*) 20 mg PO DAILY [facility] Last Admin: 04/26/18 08:08 Dose: 20 mg Olanzapine (Zyprexa * Tab Odt) 5 mg PO BEDTIME [facility] - Discharge Plan Discharge Plan: Inpatient Hospitalization
[2018-04-26] MEDS: OLANzapine TAB*ODT* 5 MG PO SCH (20:21)
[2018-04-26] MEDS: clonazePAM TAB(*) 1 MG PO SCH (20:21)
[2018-04-27] MEDS: Vitamin THERAPEUTIC TAB PO SCH (08:05)
[2018-04-27] MEDS: Lithium Carbonate TAB* 300 MG PO SCH ×2 (08:06→21:48)
[2018-04-27] MEDS: OLANzapine TAB*ODT* 10 MG TAB PO SCH (08:06)
[2018-04-27] MEDS: clonazePAM TAB(*) 1 MG PO SCH (21:48)
[2018-04-27] MEDS: OLANzapine TAB*ODT* 5 MG PO SCH (21:48)
[2018-04-28] MEDS: OLANzapine TAB*ODT* 10 MG TAB PO SCH (10:31)
[2018-04-28] MEDS: Vitamin THERAPEUTIC TAB PO SCH (10:34)
[2018-04-28] MEDS: Lithium Carbonate TAB* 300 MG PO SCH ×2 (10:34→21:10)
--- NOTE | 2018-04-28 15:55 | PN ---
Subjective - Subjective Service Type: [id number] Hosp care 15 min low complexity Subjective: This morning, patient was pleasant with bright affect. She reports feeling "better than yesterday." She continues to exhibit some delusional ideation, racing thoughts and bizarre behavior. She is less intrusive and irritable. When I attempt to engage with her this afternoon, she is sleeping soundly. Objective - Appearance Appearance: Thin Framed Dysmorphic Features: No Hygiene: Normal Grooming: Fairly Well Kept - Behavior Psychomotor Activities: Normal Exhibits Abnormal Movement: No - Attitude and Relatedness Attitude and Relatedness: Psychotically Related Eye Contact: Poor - Speech Quality: Unpressured Latencies: Normal Quantity: Copious - Mood Patient's Decription of Mood: "better" - Affect Observed Affect: Expansive Affect Consistent with: Euphoria - Thought Process Patient's Thought Process: Loose Associations Thought Content: Yes Paranoid Ideation, No Passive Wish, No Suicidal Planning, No Homicidal Ideation - Sensorium Experiencing Hallucinations: No, Sensorium is Clear Type of Hallucinations: Visual: No, Auditory: No, Command: No - Level of Consciousness Level of Consciousness: Alert Orientation: Yes Intact, Yes Orientated to Time, Yes Orientated to Place, Yes Orientated to Person - Impulse Control Impulse Control: Impaired - Insight and Judgement Insight and Judgement: Impaired - Group Participation Particating in Group Activities: No - Medication Management Medication Management Adherence: Yes Assessment - Assessment Merits Inpatient Hospitalization: For Immediate Safety, For Stabilization, Consolidate Improvements, Pending Safe DC Plan Inpatient DSM-V Dx: F31.2 Clinical Impression: 57yo wf with known history of bipolar I d/o who presented to ED with friend due to suicidal statements. patient is showing signs of improvement but continues to have delusional and bizarre behavior and is unable to care for herself. She merits hospitalization for immediate safety and stabilization. MHU: Problem List - Patient Problems (1) Bipolar disorder Current Visit: No Status: Active Priority: Low Code(s): F31.9 - BIPOLAR DISORDER, UNSPECIFIED SNOMED Code(s): 71307380 Comment: continue to titrate lithium and olanzapine Plan - Plan Treatment Plan: Name: CODIE OTERO Birthdate: 1960 [id number] continue acute intensive psychiatric treatment. change olanzapine dosing to 5mg qam and 20mg qhs. Medications: Current Medications Acetaminophen (Tylenol Tab*) 650 mg PO Q4H PRN PRN Reason: PAIN or TEMP > 101 F Last Admin: 04/21/18 08:15 Dose: 650 mg Al Hydrox/Mg Hydrox/Simethicone (Maalox Plus*) 30 ml PO Q4H PRN PRN Reason: INDIGESTION Clonazepam (Klonopin Tab(*)) 1 mg PO BEDTIME [facility] Last Admin: 04/27/18 21:48 Dose: 1 mg Clonazepam (Klonopin Tab(*)) 1 mg PO TID PRN PRN Reason: anxiety/agitation Last Admin: 04/25/18 01:37 Dose: 1 mg [place] Carbonate ([place] Carbonate Tab*) 600 mg PO BID [facility] Last Admin: 04/28/18 10:34 Dose: 600 mg Multivitamins (Theragran Tab*) 1 tab PO DAILY [facility] Last Admin: 04/28/18 10:34 Dose: 1 tab Olanzapine (Zyprexa *Odt*) 10 mg PO BEDTIME ONE Stop: 04/28/18 20:01 Olanzapine (Zyprexa * Tab Odt) 5 mg PO DAILY [facility] Olanzapine (Zyprexa *Odt*) 20 mg PO BEDTIME [facility] - Discharge Plan Discharge Plan: Inpatient Hospitalization
[2018-04-28] MEDS: clonazePAM TAB(*) 1 MG PO PRN (16:32)
[2018-04-28] MEDS ORDERED: OLANzapine TAB*ODT* 10 MG TAB PO ONE (20:00)
[2018-04-28] MEDS: clonazePAM TAB(*) 1 MG PO SCH (21:09)
[2018-04-29] MEDS: clonazePAM TAB(*) 1 MG PO PRN ×2 (04:23→09:38)
[2018-04-29] MEDS ORDERED: OLANzapine TAB*ODT* 5 MG PO SCH (09:00)
[2018-04-29] MEDS: Lithium Carbonate TAB* 300 MG PO SCH ×2 (09:38→21:13)
[2018-04-29] MEDS: Vitamin THERAPEUTIC TAB PO SCH (09:39)
[2018-04-29] MEDS: Benztropine TAB* 1 MG PO SCH (21:23)
[2018-04-29] MEDS: OLANzapine TAB*ODT* 10 MG TAB PO SCH (21:23)
[2018-04-29] MEDS: clonazePAM TAB(*) 1 MG PO SCH (21:23)
[2018-04-30] MEDS: Benztropine TAB* 1 MG PO SCH ×3 (00:30→22:31)
[2018-04-30] MEDS: clonazePAM TAB(*) 1 MG PO SCH ×2 (00:30→22:31)
[2018-04-30] MEDS: Lithium Carbonate TAB* 300 MG PO SCH ×2 (07:51→22:31)
[2018-04-30] MEDS: Vitamin THERAPEUTIC TAB PO SCH (07:51)
[2018-04-30] MEDS: OLANzapine TAB*ODT* 10 MG TAB PO SCH (22:31)
[2018-05-01] MEDS: Lithium Carbonate TAB* 300 MG PO SCH ×2 (08:57→20:30)
[2018-05-01] MEDS: Vitamin THERAPEUTIC TAB PO SCH (08:57)
[2018-05-01] MEDS: Benztropine TAB* 1 MG PO SCH ×2 (08:57→20:36)
[2018-05-01] MEDS ORDERED: OLANzapine TAB*ODT* 5 MG PO ONE (11:54)
[2018-05-01] MEDS ORDERED: Docusate CAP* 100 MG PO PRN (11:56)
--- NOTE | 2018-05-01 16:41 | PN ---
Subjective - Subjective Date of Service: 05/01/18 Service Type: [id number] Hosp care 25 min moderate complexity Subjective: Patient is disorganized yet pleasant. She is reading the paper and asks about the people in photos as if they were present. Patient reports not knowing whether to take the medication last night because she did not speak with on- call physician before he left. She inquires about olanzapine dosing and agrees to 10mg BID, including a 5mg after lunch. However, she refused dose after lunch. Patient's friend, Elo Carcamo visited and pt allowed advertising writer to speak with her. Elo reports that she had never seen Codie wong and that she is improving. Objective - Appearance Appearance: Thin Framed Dysmorphic Features: No Hygiene: Normal Grooming: Fairly Well Kept - Behavior Psychomotor Activities: Normal Exhibits Abnormal Movement: No - Attitude and Relatedness Attitude and Relatedness: Cooperative Eye Contact: Fair - Speech Quality: Unpressured Latencies: Short Quantity: Copious - Mood Patient's Decription of Mood: "constipated" - Affect Observed Affect: Expansive Affect Consistent with: Euphoria - Thought Process Patient's Thought Process: Loose Associations, Over Inclusive Thought Content: No Passive Wish, No Suicidal Planning, No Homicidal Ideation, No Paranoid Ideation - Sensorium Experiencing Hallucinations: No, Sensorium is Clear Type of Hallucinations: Visual: No, Auditory: No, Command: No - Level of Consciousness Level of Consciousness: Alert Orientation: Yes Intact, Yes Orientated to Time, Yes Orientated to Place, Yes Orientated to Person - Impulse Control Impulse Control: Poor - Insight and Judgement Insight and Judgement: Impaired - Group Participation Particating in Group Activities: No - Medication Management Medication Management Adherence: Partial Assessment - Assessment Merits Inpatient Hospitalization: For Immediate Safety, For Stabilization Inpatient DSM-V Dx: F31.2 Clinical Impression: 57yo wf with known history of bipolar I d/o who presented to ED with friend due to suicidal statements. patient is showing signs of improvement but continues to have delusional and bizarre behavior and is unable to care for herself. She merits hospitalization for immediate safety and stabilization. MHU: Problem List - Patient Problems (1) Bipolar disorder Current Visit: No Status: Active Priority: Low Code(s): F31.9 - BIPOLAR DISORDER, UNSPECIFIED SNOMED Code(s): 95138367 Comment: continue to titrate lithium and olanzapine Plan - Plan Treatment Plan: Name: CODIE OTERO Birthdate: 1960 [id number] continue acute intensive psychiatric treatment. convert legal status to 2PC ( 9.27) lithium level , decrease dose to 450mg BID. change olanzapine to 10mg BID. Medications: Current Medications Acetaminophen (Tylenol Tab*) 650 mg PO Q4H PRN PRN Reason: PAIN or TEMP > 101 F Last Admin: 04/21/18 08:15 Dose: 650 mg Al Hydrox/Mg Hydrox/Simethicone (Maalox Plus*) 30 ml PO Q4H PRN PRN Reason: INDIGESTION Benztropine Mesylate (Cogentin Tab*) 0.5 mg PO BID [facility] Last Admin: 05/01/18 08:57 Dose: 0.5 mg Clonazepam (Klonopin Tab(*)) 1 mg PO BEDTIME [facility] Last Admin: 04/30/18 22:31 Dose: Not Given Clonazepam (Klonopin Tab(*)) 1 mg PO TID PRN PRN Reason: anxiety/agitation Last Admin: 04/29/18 04:23 Dose: 1 mg Docusate Sodium (Colace Cap*) 100 mg PO BID PRN PRN Reason: CONSTIPATION [place] Carbonate ([place] Carbonate Tab*) 450 mg PO BID [facility] Multivitamins (Theragran Tab*) 1 tab PO DAILY [facility] Last Admin: 05/01/18 08:57 Dose: 1 tab Olanzapine (Zyprexa *Odt*) 10 mg PO BID [facility] - Discharge Plan Discharge Plan: Inpatient Hospitalization
[2018-05-01] MEDS: clonazePAM TAB(*) 1 MG PO SCH (20:36)
[2018-05-01] MEDS: OLANzapine TAB*ODT* 10 MG TAB PO SCH (20:57)
[2018-05-02] MEDS: Lithium Carbonate TAB* 300 MG PO SCH ×2 (09:07→20:29)
[2018-05-02] MEDS: Benztropine TAB* 1 MG PO SCH (09:08)
[2018-05-02] MEDS: OLANzapine TAB*ODT* 10 MG TAB PO SCH (09:09)
[2018-05-02] MEDS: Vitamin THERAPEUTIC TAB PO SCH (09:09)
[2018-05-02] MEDS ORDERED: diPHENhydraMINE PO* 50 MG PO PRN (11:25)
--- NOTE | 2018-05-02 11:29 | PN ---
Subjective - Subjective Date of Service: 05/02/18 Service Type: [id number] Hosp care 25 min moderate complexity Subjective: patient declines olanzapine and reports this causes dissociative episode. she states that her psychotic symptoms are attributed to "this place is crazy." Patient is cheerful, hypertalkative with pressured speech. She endorses some paranoid ideation. Deputy Jailer encouraged patient to utilize low dose olanzapine temporarily, with the plan to DC the medication at discharge. Objective - Appearance Appearance: Thin Framed Dysmorphic Features: No Hygiene: Normal Grooming: Well Kept - Behavior Psychomotor Activities: Normal Exhibits Abnormal Movement: No - Attitude and Relatedness Attitude and Relatedness: Cooperative Eye Contact: Good - Speech Quality: Pressured Latencies: Normal Quantity: Appropriate - Mood Patient's Decription of Mood: "Good" - Affect Observed Affect: Expansive Affect Consistent with: Euphoria - Thought Process Patient's Thought Process: Loose Associations, Over Inclusive Thought Content: Yes Paranoid Ideation, No Passive Wish, No Suicidal Planning, No Homicidal Ideation - Sensorium Experiencing Hallucinations: No, Sensorium is Clear Type of Hallucinations: Visual: No, Auditory: No, Command: No - Level of Consciousness Level of Consciousness: Alert Orientation: Yes Intact, Yes Orientated to Time, Yes Orientated to Place, Yes Orientated to Person - Impulse Control Impulse Control: Poor - Insight and Judgement Insight and Judgement: Poor - Group Participation Particating in Group Activities: No - Medication Management Medication Management Adherence: Partial Assessment - Assessment Merits Inpatient Hospitalization: For Immediate Safety, For Stabilization, Consolidate Improvements Inpatient DSM-V Dx: F31.2 Clinical Impression: 57yo wf with known history of bipolar I d/o who presented to ED with friend due to suicidal statements. patient is showing signs of improvement but continues to have delusional and bizarre behavior and is unable to care for herself. She merits hospitalization for immediate safety and stabilization. MHU: Problem List - Patient Problems (1) Bipolar disorder Current Visit: No Status: Active Priority: Low Code(s): F31.9 - BIPOLAR DISORDER, UNSPECIFIED SNOMED Code(s): 15175078 Comment: continue to titrate lithium and olanzapine Plan - Plan Treatment Plan: Name: CODIE OTERO Birthdate: 1960 [id number] continue acute intensive psychiatric treatment. convert legal status to 2PC ( 9.27) decrease olanzapine to 5mg qhs, DC benztropine. add diphenhydramine prn insomnia. obtain lithium level, TSH, free T4 on 05/04/18 may decrease to q30min obs and allow staff pass. Continued Medication Management: Different Medication Medications: Current Medications Acetaminophen (Tylenol Tab*) 650 mg PO Q4H PRN PRN Reason: PAIN or TEMP > 101 F Last Admin: 04/21/18 08:15 Dose: 650 mg Al Hydrox/Mg Hydrox/Simethicone (Maalox Plus*) 30 ml PO Q4H PRN PRN Reason: INDIGESTION Clonazepam (Klonopin Tab(*)) 1 mg PO BEDTIME [facility] Last Admin: 05/01/18 20:36 Dose: Not Given Clonazepam (Klonopin Tab(*)) 1 mg PO TID PRN PRN Reason: anxiety/agitation Last Admin: 04/29/18 04:23 Dose: 1 mg Diphenhydramine HCl (Benadryl Po*) 50 mg PO BEDTIME PRN PRN Reason: INSOMNIA Docusate Sodium (Colace Cap*) 100 mg PO BID PRN PRN Reason: CONSTIPATION [place] Carbonate ([place] Carbonate Tab*) 450 mg PO BID [facility] Last Admin: 05/02/18 09:07 Dose: 450 mg Multivitamins (Theragran Tab*) 1 tab PO DAILY [facility] Last Admin: 05/02/18 09:09 Dose: 1 tab Olanzapine (Zyprexa *Odt*) 5 mg PO BEDTIME [facility] - Discharge Plan Discharge Plan: Inpatient Hospitalization
[2018-05-02] MEDS: clonazePAM TAB(*) 1 MG PO SCH (20:30)
[2018-05-02] MEDS: OLANzapine TAB*ODT* 5 MG PO SCH (20:30)
[2018-05-03] MEDS: Lithium Carbonate TAB* 300 MG PO SCH ×2 (11:55→20:28)
[2018-05-03] MEDS: Vitamin THERAPEUTIC TAB PO SCH (11:56)
--- NOTE | 2018-05-03 12:51 | PN ---
MHU: Group Therapy Note - Service Type Service Type: [id number] Group Psychotherapy - Cognitive Behavioral Group Therapy ( CBT):Patient was attentive and participatory in CBT programming this morning, and remained in good behavioral control. Patient expressed positive insights regarding relevant treatment interventions and goals.
[2018-05-04] MEDS: OLANzapine TAB*ODT* 5 MG PO SCH ×2 (01:46→20:38)
[2018-05-04] MEDS: clonazePAM TAB(*) 1 MG PO SCH ×2 (01:46→20:37)
[2018-05-04] MEDS: clonazePAM TAB(*) 1 MG PO PRN (03:07)
[2018-05-04 08:11] LABS: Lithium 0.64 mmol/L (0.6-1.2)
[2018-05-04 08:25] LABS: TSH (Thyroid Stimulating Horm) 0.22 mcIU/mL (0.34-5.60)
[2018-05-04 08:27] LABS: Free T4 0.61 ng/dL (0.61-1.12)
[2018-05-04] MEDS: Lithium Carbonate TAB* 300 MG PO SCH ×2 (09:09→20:38)
[2018-05-04] MEDS: Vitamin THERAPEUTIC TAB PO SCH (09:09)
--- NOTE | 2018-05-04 13:58 | PN ---
Subjective - Subjective Date of Service: 05/04/18 Service Type: 15458 Hosp care 25 min moderate complexity Subjective: Patient is euthymic with bright affect. Informed of lithium level this morning and patient agrees to continue with current dose of lithium. She declines olanzapine and this is no longer indicated due to presentation. Patient reports readiness for discharge and agrees to do so in the morning. Rehabilitation Director phoned patient's mother, Clari, to update her on presentation and plan. Clari reports speaking to Felipa on the phone last evening and noticed that she sounded "herself." She states appreciation for patient's improvement and requests that providers encourage patient to continue on medication (lithium). Rehabilitation Director spoke with patient's friend/neighbor, Mary at [phone]. 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 Objective - Appearance Dysmorphic Features: No Hygiene: Normal Grooming: Well Kept - Behavior Psychomotor Activities: Normal Exhibits Abnormal Movement: No - Attitude and Relatedness Attitude and Relatedness: Cooperative Eye Contact: Good - Speech Quality: Unpressured Latencies: Normal Quantity: Appropriate - Mood Patient's Decription of Mood: "Good" - Affect Observed Affect: Good Affect Consistent with: Euthymia - Thought Process Patient's Thought Process: Coherent, Goal Directed Thought Content: No Passive Wish, No Suicidal Planning, No Homicidal Ideation, No Paranoid Ideation - Sensorium Experiencing Hallucinations: No, Sensorium is Clear Type of Hallucinations: Visual: No, Auditory: No, Command: No - Level of Consciousness Level of Consciousness: Alert Orientation: Yes Intact, Yes Orientated to Time, Yes Orientated to Place, Yes Orientated to Person - Impulse Control Impulse Control: Intact - Insight and Judgement Insight and Judgement: Good - Group Participation Particating in Group Activities: Yes - Medication Management Medication Management Adherence: Partial Assessment - Assessment Merits Inpatient Hospitalization: For Immediate Safety, For Stabilization Inpatient DSM-V Dx: F31.2 Clinical Impression: 57yo wf with known history of bipolar I d/o who presented to ED with friend due to suicidal statements. patient is psychiatrically stabilized and pending discharge on 05/05/18. MHU: Problem List - Patient Problems (1) Bipolar disorder Current Visit: No Status: Active Priority: Low Code(s): F31.9 - BIPOLAR DISORDER, UNSPECIFIED SNOMED Code(s): [id number] Comment: continue to titrate lithium and olanzapine Plan - Plan Treatment Plan: Name: FELIPA OTERO Birthdate: 1960 [id number] continue acute intensive psychiatric treatment. DC olanzapine. continue other medications. may decrease to q30min obs and allow staff pass. discharge tentative 05/05/18. Medications: Current Medications Acetaminophen (Tylenol Tab*) 650 mg PO Q4H PRN PRN Reason: PAIN or TEMP > 101 F Last Admin: 04/21/18 08:15 Dose: 650 mg Al Hydrox/Mg Hydrox/Simethicone (Maalox Plus*) 30 ml PO Q4H PRN PRN Reason: INDIGESTION Clonazepam (Klonopin Tab(*)) 1 mg PO BEDTIME [facility] Last Admin: 05/04/18 01:46 Dose: Not Given Clonazepam (Klonopin Tab(*)) 1 mg PO TID PRN PRN Reason: anxiety/agitation Last Admin: 05/04/18 03:07 Dose: 1 mg Diphenhydramine HCl (Benadryl Po*) 50 mg PO BEDTIME PRN PRN Reason: INSOMNIA Last Admin: 05/04/18 00:28 Dose: 50 mg Docusate Sodium (Colace Cap*) 100 mg PO BID PRN PRN Reason: CONSTIPATION [place] Carbonate ([place] Carbonate Tab*) 600 mg PO BID [facility] Last Admin: 05/04/18 09:09 Dose: 600 mg Multivitamins (Theragran Tab*) 1 tab PO DAILY [facility] Last Admin: 05/04/18 09:09 Dose: 1 tab Olanzapine (Zyprexa * Tab Odt) 5 mg PO BEDTIME [facility] Last Admin: 05/04/18 01:46 Dose: Not Given - Discharge Plan Discharge Plan: Outpatient Follow Up Outpatient Program: [facility]
[2018-05-05] MEDS: Lithium Carbonate TAB* 300 MG PO SCH (08:16)
[2018-05-05] MEDS: Vitamin THERAPEUTIC TAB PO SCH (08:17)
[2018-05-05 09:15] VITALS: BP 92/56
--- NOTE | 2018-05-09 01:27 | DS ---
CC: [facility]; Dr. Garnett DISCHARGE SUMMARY: DATE OF ADMISSION: 04/18/18 DATE OF DISCHARGE: 05/05/18 SUPERVISING PSYCHIATRIST: Dr. Jeison Mcclellan. DISCHARGE DIAGNOSIS: Bipolar I disorder, most recent episode manic, with psychotic features. CONDITION AT TIME OF DISCHARGE: Improved. The patient is euthymic, pleasant with bright affect. Sh e is coherent, logical, goal directed. She has tolerated titration of lithium and we utilized olanza pine during hospitalization due to psychotic features. The patient has been intermittently adherent to olanzapine. Due to resolution of psychotic features, I do not see that antipsychotic would be nece ssary to continue. The patient has been calm and in behavioral control. She has been safe on all ch ecks. She denies suicidal ideation. As stated above, she is logical and organized in thought. The patient reports readiness for discharge. This senior medical writer spoke with her mother on the phone, who indicate d that Felipa sounds to be back to herself through phone conversations. MENTAL STATUS EXAM: Felipa is a 57-year-old white female, thin framed, who appears healthy and young for stated age. She is well groomed, dressed appropriately in her own clothing with multiple layers due to temperature on the unit. She is alert and oriented x3. Her eye contact is good. Speech is soft and articulate. Thought process logical, coherent, future oriented. Thought content negative f or suicidal ideation, homicidal ideation, or violence ideation. There are no delusional or perceptua l disturbances noted. Concentration is good. Memory is 3/3. Fund of knowledge is excellent. DISCHARGE INSTRUCTIONS: Given to patient: A. Medications: 1. Grambling carbonate 600 mg p.o. b.i.d. 2. Clonazepam 1 mg p.o. q.h.s. p.r.n. insomnia 3. Diphenhydramine 50 mg p.o. q.h.s. p.r.n. insomnia. B. Diet: Regular. C. Activity: As tolerated. Tobacco cessation is not applicable. There are no pending labs or diag nostic studies. Her most recent lithium level was 0.64 on 05/04/18. D. Followup Care: The patient will follow up with [facility]. She has an appoint ment with Dr. Angela on , 05/11/18, at 2 p.m., from there she will be scheduled with [facility] nurse therapist, Aguila Vu. The patient can follow up with her primary care provider, Dr. Garnett , as needed within a month. E. substance use followup is not applicable. HOSPITAL COURSE: Part A: Reason for admission: The patient presented to the emergency department wi th a friend, who reported concerns of suicidal ideation. The patient presented as disorganized with paranoid ideation. She has a known history of bipolar disorder and has been working with [facility] for 2 to 3 decades. She presented to the emergency department on the afternoon of 04/17/18 after presentin g to [facility]. While in the emergency department, the patient was evaluated and refusing labs or x-rays to rule out medical complications. Also, while in the emergency department, she presented as disorganized with paranoid ideation and was admitted on the evening of 04/18/18. The patient presented as highly distractible, irritable with pressured speech. She initially met [facility] provider with whom she had a good rapport in the outpatient setting. However, today she refused to work with her and was alarmingly irritable and paranoid. The patient presented with loose associati on and was circumstantial in regards to an organization she was involved with in the past, called [employer]. She goes on to describe interpersonal conflict with members of the organization. She st ates that she had an affair with a fixer boarding room during this time. She goes on to describe work that she had done at [employer] until 2007. 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 It is my presumption that she was likely unable to work due to disabil ity surrounding bipolar disorder. The patient continued to exhibit grandiosity, irritability, ideas of reference, and thought insertion. She reported stopping lithium this past spring or summer and heredia d been taking it inconsistently for the last 3 to 4 years. She reported using a combination of alpra zolam and benzodiazepines. Per, [facility] she had one prescription in April of 2017 and one in June of 2017; otherwise, there were no other controlled prescriptions. [facility] reference number [id number]. Part B: Psychiatric treatment rendered: The patient was admitted on involuntary status to the adult BSU. Code status was full. She was placed on 15-minute checks for her safety. She remained on 15- minute checks for the majority of the hospitalization. Upon admission to the unit, we reinstated lit hium and eventually added olanzapine due to florid psychosis. On 04/20/18, the patient did not sleep last night despite medication adherence. Today, she has parano id delusions and is guarded. She exhibits hypergraphia and racing thoughts. Her speech is terse wit h loose associations. On 04/21/18, the patient briefly last night she attempted to leave unit due to confused state. She expressed desire to be assessed in the ED and reported concern about "life- thr eatening illness." She was reminded that she was seen in the ED prior to the BSU and seemed to be re lieved by this information. She initially agreed to an EKG and then later refused to cooperate. She was tangential, labile, expressed paranoid ideation about ice and the fire department. Over the nex t week, the patient continued to present as manic. She was intrusive to staff and peers and displaye d bizarre behaviors. She was medication compliant for the most part until 04/23/18. On 04/25/18, we checked lithium level. At this time, the dose was 600 mg b.i.d., lithium level was 1.01. The follo wing week, she was less adherent with olanzapine. She continued to present with pressured speech and paranoid ideation. She slept approximately 1 to 2 hours at a time, various times throughout the day and night. In the week of 04/27/18, the patient was less irritable and had a bright affect. She continued to exh ibit delusional ideations, racing thoughts, and bizarre behavior. She was less intrusive. On , we obtained a lithium level and it was later found out that the patient had been given her mornin g dose prior to the blood draw. Her lithium level on 04/30/18 was erroneous at 1.47. I briefly decr eased her lithium to 450 b.i.d. until finding out about the error, then changed the dose back to 600 mg b.i.d. On this dose, we obtained a lithium level on 05/04/18, the value was 0.64. This will like ly continue to increase back to approximately 1. The patient's friend Bailey, friend and neighbor vis ited over the course of hospitalization. Felipa allowed this senior medical writer to discuss presentation and disc harge plans with her. Bailey reported that she had never seen Felipa psychotic as she was at the hospital for behavioral medicine of hospitalization and noted towards the end of the hospitalization that she was improving. On 05/02/18, the patient declined olanzapine and reported it caused dissociative episode. She reported this also happened with quetiapine in the past. She was cheerful, hyper-talkative with pressured sp eech with some paranoid ideation. On 05/04/18, the patient was euthymic with bright affect. On day of discharge, this senior medical writer phoned her mother, Clari, who lives in [place] as we had talked earlier in the patient's hospitalization. Clari reported talking to Felipa on the phone last evening and noticed that she sounded "like herself." She reported appreciation for the patient's improvement and requested that the providers encourage the patient to continue on medication, parenthetically kennedy villatoro. At the time of discharge, the patient agreed to return home. She was able to organize her belong ings and agreed to taxi home. She was given discharge instructions by nursing staff. ALFREDITO ERWIN NP [id number]/[facility] #: [id number]
== END 2018-05-05 13:38 | disposition home or self-care (01) | DRG 753 ==
LOC: ED 12:29 → BSU 04-18 18:07
PROVIDERS: ADMIT Psychiatry & Neurology Psychiatry; ATTEND Psychiatry & Neurology Psychiatry
PROC: GZHZZZZ Group Psychotherapy (ICD-10-PCS; principal; 2018-04-18)
DX: F31.2 Bipolar disorder, current episode manic severe with psychotic features (principal); R45.851 Suicidal ideations; F41.9 Anxiety disorder, unspecified; F50.9 Eating disorder, unspecified; Z87.891 Personal history of nicotine dependence; Z82.49 Family history of ischemic heart disease and other diseases of the circulatory system; Z72.89 Other problems related to lifestyle
CPT/HCPCS: 36415; 80053; 80061; 80178; 80307; 80320; 80329; 81003; 83036; 84439; 84443; 85025; 90853; 99222; 99231; 99232; 99233; 99238; 99284; A9270-GY; G0480